=== PATIENT | male | born 1965 | race Caucasian/White ===

== ENCOUNTER 2018-09-16 09:40 | Emergency (ER) | payer OTHER ==
[~2018-09-16] VITALS: Ht 165.1 cm; Wt 63.5 kg
[~2018-09-16 09:40] MED LIST: CLON1 PO; CLON2 PO; CRUTCH4 XX; Colace100 MG PO; Flomax0.4 MG PO; HYDACE5 PO; IBUP600 PO; NAPR500 PO; NAPR550 PO; ONDA4ODT MM; PROM25 PO; Percocet 5-3251 EACH PO; Ultram50 MG PO; [UNRECOGNIZED DRUG - REMARK]
[2018-09-16] MEDS ORDERED: Flonase 0.05% N16 GM (10:17)
[2018-09-16] MEDS ORDERED: BENZ100A PO (10:17)
== END 2018-09-16 10:22 | disposition home or self-care (01) ==
LOC: ER 09:40
DX: J06.9 Acute upper respiratory infection, unspecified (principal); Z79.899 Other long term (current) drug therapy
CPT/HCPCS: 93005; 93010; 99283-25